=== PATIENT | male | born 1975 | race Caucasian/White ===

== ENCOUNTER 2017-06-04 10:07 | Emergency (ER) | payer OTHER ==
[~2017-06-04] VITALS: Ht 180.3 cm; Wt 83.9 kg
--- NOTE | ~2017-06-04 | CR126 ---
[facility] A Service of [facility] & [facility] RADIOLOGY TEXT RESULTS PATIENT: PENG CHO JR LOCATION: SED : 79 UNIT #: [id number] AGE: [address]: Elda Seo SEX: M ORDER DR: [id number] [address] [address] [id number] MR#: [id number] #: [id number] NAME: PENG CHO : 1975 SEX: M STUDY DATE/TIME: 06/04/2017 11:00 UNIT: SED ROOM: STUDY DESCRIPTION: CR Foot Complete Min 3 View Lt Attending Physician: Elda Seo Pa-C Ordering Physician: Elda Seo Pa-C Primary Care Physician: No Primary Care Physician MEDICAL IMAGING REPORT This report is preliminary unless electronic signature is present. EXAM Left foot 3 views 06/04/2017 11 o'clock hours CLINICAL HISTORY 42-year-old man who suffered foot injury when patient's foot slipped on a boat yesterday. Bruising of the second digit. COMPARISON None. FINDINGS AP, lateral and oblique views demonstrate overall normal bone density. The AP view demonstrates a longitudinal lucency through the mid portion of the middle phalanx of the second toe extending to the distal articular surface at the interphalangeal joint of the second toe likely be acute, closed, nondisplaced fracture. This is difficult to identify on the oblique or lateral view. IMPRESSION There is an acute longitudinal closed fracture of the middle phalanx of the second toe extending to the distal interphalangeal joint. There is no displacement or angulation. STAT * RESULT Dictated by... Jennie Bertrand M.D. THIS IS AN ELECTRONICALLY VERIFIED REPORT Jennie Bertrand M.D. at 06/04/2017 2:28 PM SMM/tameka [facility] A Service of [facility] & [facility] RADIOLOGY TEXT RESULTS PATIENT: PENG CHO JR LOCATION: SED : 79 UNIT #: [id number] AGE: [address]: Elda Seo SEX: M ORDER DR: TD: 06/04/2017 11:22 JOB #: [id number] MEDICAL IMAGING REPORT Page 1 of 1
[~2017-06-04 10:07] MED LIST: ALPRAZOLAM PO; AMOXICILLIN PO; BUSPAR5 MG PO; COMBIVENT MININEB INH; CORTISPORIN-TC10 ML OT; LORTAB 10-5001 EACH PO; NAPROSYN500 MG PO; NEURONTIN600 MG PO; NO MEDICATIONS; ORUDIS75 M1 DOB; ORUDIS75 M1 PO; PEN-VEE K PO; ROBITUSSIN ALL118 ML PO; VICODIN 5/500 T1 TAB PO; VOLTAREN75 MG PO; ZITHROMAX PO
[2017-06-04] MEDS ORDERED: LISINOPRIL10 MG PO (10:31)
== END 2017-06-04 11:51 | disposition home or self-care (01) ==
LOC: SED 10:07
DX: S92.525A Nondisplaced fracture of middle phalanx of left lesser toe(s), initial encounter for closed fracture (principal); I10 Essential (primary) hypertension; F17.200 Nicotine dependence, unspecified, uncomplicated; W01.0XXA Fall on same level from slipping, tripping and stumbling without subsequent striking against object, initial encounter; Y92.830 Public park as the place of occurrence of the external cause
CPT/HCPCS: 29405; 73630; 99283

== ENCOUNTER 2017-07-27 17:30 | Emergency (ER) | payer OTHER ==
[~2017-07-27 17:30] MED LIST changes: +LISINOPRIL10 MG PO
== END 2017-07-27 20:15 | disposition home or self-care (01) ==
LOC: SED 17:30
DX: S51.812A Laceration without foreign body of left forearm, initial encounter (principal); F17.200 Nicotine dependence, unspecified, uncomplicated; I10 Essential (primary) hypertension; W45.8XXA Other foreign body or object entering through skin, initial encounter; Y92.009 Unspecified place in unspecified non-institutional (private) residence as the place of occurrence of the external cause; Z23 Encounter for immunization
CPT/HCPCS: 12001; 90471; 90715; 99283